=== PATIENT | female | born 1960 | race African-American/Black ===

== ENCOUNTER 2021-08-06 10:37 | Emergency (ER) | payer OTHER ==
[~2021-08-06] VITALS: Ht 157.5 cm; Wt 63.5 kg
--- NOTE | 2021-08-06 10:37 | NUR ---
BIBSELF C/O LEFT UPPER BACK PAIN X3DAYS, DENIES TRAUMA, CONCERN OF PNEUMONIA. DENIES COUGH/SOB. VITALS ARE WITHIN NORMAL LIMITS. BREATHING IS EVEN AND UNLABORED. PROVIDED BLANKET FOR COMFORT MEASURES.
--- NOTE | 2021-08-06 11:06 | NUR ---
Note rodneydylon in EDM - 08/06/21 at 1107 by ZORAIDARAJORDONO BIBSELF C/O LEFT UPPER BACK PAIN X3DAYS, DENIES TRAUMA, CONCERN OF PNEUMONIA. DENIES COUGH/SOB. VITALS ARE WITHIN NORMAL LIMITS. BREATHING IS EVEN AND UNLABORED. PROVIDED BLANKET FOR COMFORT MEASURES.
[2021-08-06 11:11] VITALS: BP 122/80
--- NOTE | 2021-08-06 11:28 | NUR ---
RN NOTES CX- RAY DONE.
[2021-08-06] MEDS ORDERED: IBUP-1955 PO (11:36)
== END 2021-08-06 11:43 | disposition home or self-care (01) ==
LOC: ER 10:42
DX: M25.511 Pain in right shoulder (principal); I10 Essential (primary) hypertension
CPT/HCPCS: 71045-TC

== ENCOUNTER 2021-08-15 16:03 | Emergency (ER) | payer OTHER ==
[~2021-08-15] VITALS: Ht 157.5 cm; Wt 63.5 kg
[~2021-08-15 16:03] MED LIST: IBUP-1955 PO
--- NOTE | 2021-08-15 16:25 | NUR ---
Note rodneyone in EDM - 08/15/21 at 1730 by KADEN RORY Anand FROM [employer] C/O DIZZINESS, WAS ABLE TO SIT DOWN -LOC -TRAUMA. WAS HER LAST WEEK FOR BACK PAIN. PT VITALS ARE WITHIN NORMAL LIMITS. BREATHING IS EVEN AND UNLABORED.
--- NOTE | 2021-08-15 16:25 | NUR ---
BIBS C/O COUGH, CHEST PAIN, BACK PAIN, WEAKNESS SINCE 08/06, WAS HERE LAST WEEK FOR BACK PAIN. VITALS ARE WITHIN NORMAL LIMITS. BREATHING IS REGULAR AND UNLABORED.
[2021-08-15] MEDS ORDERED: IV NS 0.9% 1,000 ML BAG IV ONE (17:00)
[2021-08-15 17:21] LABS: BASOPHILS % (AUTO) 1.3 % (0.0-2.0); EOSINOPHILS % (AUTO) 2.8 % (0.0-6.0); HEMATOCRIT 40 % (33-45); HEMOGLOBIN 12.9 g/dL (11.5-14.8); LYMPHOCYTES # (AUTO) 1.7 K/uL (0.8-4.8); LYMPHOCYTES % (AUTO) 50.2 % (20.0-44.0); MEAN CORPUSCULAR HGB CONC 33 g/dl (31.0-36.0); MEAN CORPUSCULAR VOLUME 87 fL (82-100); MONOCYTES # (AUTO) 0.3 K/uL (0.1-1.30); NEUTROPHILS # (AUTO) 1.2 K/uL (1.8-8.9); NEUTROPHILS % (AUTO) 36.7 % (43.0-81.0); PLATELET COUNT (AUTO) 265 K/uL (150-450); RED BLOOD CELL COUNT(AUTO) 4.58 MIL/uL (4.0-5.2); WHITE BLOOD COUNT (AUTO) 3.3 K/uL (4.3-11.0)
[2021-08-15 17:47] LABS: ALANINE AMINOTRANSFERASE 19 U/L (12-78); ALBUMIN 3.5 g/dL (3.4-5.0); ALKALINE PHOSPHATASE 88 U/L (46-116); ASPARTATE AMINOTRANSFERASE 17 U/L (15-37); BILIRUBIN,DIRECT 0.1 mg/dL (0.0-0.2); BILIRUBIN,TOTAL 0.4 mg/dL (0.2-1.0); CALCIUM, SERUM 8.3 mg/dL (8.5-10.1); CARBON DIOXIDE 30 mmol/L (21-32); CHLORIDE 103 mmol/L (98-107); GLUCOSE 95 mg/dL (74-106); LIPASE 73 U/L (73-393); POTASSIUM 3.2 mmol/L (3.5-5.1); SODIUM SERUM 141 mmol/L (136-145); TOTAL PROTEIN, SERUM 7.9 g/dL (6.4-8.2); UREA NITROGEN, BLOOD 12 mg/dL (7-18)
[2021-08-15] MEDS ORDERED: POTASSIUM CHLORIDE 20 MEQ TAB.PRT.SR PO ONE ×2 (18:00→18:02)
[2021-08-15] MEDS ORDERED: AZIT250T PO (18:42)
--- NOTE | 2021-08-15 18:56 | NUR ---
COVID TEST COLLECTED AND SENT
[2021-08-15 19:24] VITALS: BP 111/81
--- NOTE | 2021-08-15 19:24 | NUR ---
IV removed. Catheter intact and site benign. Pressure and 4x4 applied to site. No bleeding noted.Patient discharged to home in stable condition. Written and verbal after care instructions given. Patient verbalizes understanding of instruction.
== END 2021-08-15 19:25 | disposition home or self-care (01) ==
LOC: ER 16:23
DX: J20.9 Acute bronchitis, unspecified (principal); Z20.822 Contact with and (suspected) exposure to COVID-19; R94.31 Abnormal electrocardiogram [ECG] [EKG]; D72.819 Decreased white blood cell count, unspecified; E87.6 Hypokalemia; I10 Essential (primary) hypertension
CPT/HCPCS: 36415; 71045; 80048; 80076; 83690; 83735; 84484; 85025; 87426; 93005; 99285; C9803; J7030

== ENCOUNTER 2022-01-28 19:47 | Emergency (ER) | payer OTHER ==
[~2022-01-28] VITALS: Ht 157.5 cm; Wt 61.2 kg
[~2022-01-28 19:47] MED LIST changes: +AZIT250T PO
--- NOTE | 2022-01-28 19:55 | NUR ---
BIBS FOR C/O MID STERNAL CP X 4 DAYS S/P DRANK ALCOHOL. PATIENT ALERT AND ORIENTED X4. AMBULATORY WITH NON LABORED BREATHING IN BED 13 WAITING MD HANNA. PATIENT ON MONITOR AND POX.
--- NOTE | 2022-01-28 20:27 | NUR ---
OPHTHALMIC NURSE AT BEDSIDE
--- NOTE | 2022-01-28 20:47 | NUR ---
URINE COLLECTED AND SENT TO LAB
[2022-01-28 21:38] VITALS: BP 129/90
--- NOTE | 2022-01-28 21:38 | NUR ---
Patient discharged to home in stable condition. Written and verbal after care instructions given. Patient verbalizes understanding of instruction.
== END 2022-01-28 21:38 | disposition home or self-care (01) ==
LOC: ER 19:51
DX: T40.711A Poisoning by cannabis, accidental (unintentional), initial encounter (principal); R07.89 Other chest pain; I10 Essential (primary) hypertension; Z79.899 Other long term (current) drug therapy; Y92.89 Other specified places as the place of occurrence of the external cause

== ENCOUNTER 2022-02-15 16:29 | Emergency (ER) | payer OTHER ==
[~2022-02-15] VITALS: Ht 157.5 cm; Wt 63.5 kg
[2022-02-15 16:36] VITALS: BP 167/81
[2022-02-15] MEDS ORDERED: IV NS 0.9% 1,000 ML BAG IV ONE (17:00)
[2022-02-15 17:16] LABS: BASOPHILS % (AUTO) 0.8 % (0.0-2.0); EOSINOPHILS % (AUTO) 2.1 % (0.0-6.0); HEMATOCRIT 39 % (33-45); HEMOGLOBIN 12.9 g/dL (11.5-14.8); LYMPHOCYTES # (AUTO) 2.3 K/uL (0.8-4.8); MEAN CORPUSCULAR HGB CONC 33 g/dl (31.0-36.0); MEAN CORPUSCULAR VOLUME 85 fL (82-100); MONOCYTES # (AUTO) 0.3 K/uL (0.1-1.30); MONOCYTES % (AUTO) 7.8 % (2.0-12.0); NEUTROPHILS # (AUTO) 1.4 K/uL (1.8-8.9); NEUTROPHILS % (AUTO) 34.3 % (43.0-81.0); PLATELET COUNT (AUTO) 294 K/uL (150-450); RED BLOOD CELL COUNT(AUTO) 4.63 MIL/uL (4.0-5.2); WHITE BLOOD COUNT (AUTO) 4.2 K/uL (4.3-11.0)
[2022-02-15 17:31] LABS: CALCIUM, SERUM 9.2 mg/dL (8.5-10.1); CARBON DIOXIDE 34 mmol/L (21-32); CHLORIDE 104 mmol/L (98-107); GLUCOSE 102 mg/dL (74-106); POTASSIUM 3.8 mmol/L (3.5-5.1); SODIUM SERUM 144 mmol/L (136-145); UREA NITROGEN, BLOOD 13 mg/dL (7-18)
[2022-02-15 17:44] LABS: ALANINE AMINOTRANSFERASE 11 U/L (12-78); ALBUMIN 3.7 g/dL (3.4-5.0); ALKALINE PHOSPHATASE 97 U/L (46-116); ASPARTATE AMINOTRANSFERASE 12 U/L (15-37); BILIRUBIN,DIRECT 0.1 mg/dL (0.0-0.2); BILIRUBIN,TOTAL 0.4 mg/dL (0.2-1.0); TOTAL PROTEIN, SERUM 8.3 g/dL (6.4-8.2)
[2022-02-15 18:51] LABS: EOSINOPHILS % (MANUAL) 1 % (0-4); LYMPHOCYTES % (MANUAL) 47 % (16-48); MONOCYTES % (MANUAL) 5 % (0-11.0); NEUTROPHILS % (MANUAL) 47 (42-76)
[2022-02-15] MEDS ORDERED: DOCU-141 PO (19:05)
== END 2022-02-15 19:12 | disposition home or self-care (01) ==
LOC: ER 16:31
DX: K59.00 Constipation, unspecified (principal); I10 Essential (primary) hypertension
CPT/HCPCS: 36415; 71045; 74176; 80048; 80076; 84484; 85007; 85025; 93005 ×2; 96360; 99285; J7030

== ENCOUNTER 2022-12-03 18:04 | Emergency (ER) | payer OTHER ==
[~2022-12-03] VITALS: Ht 157.5 cm; Wt 61.2 kg
[~2022-12-03 18:04] MED LIST changes: +DOCU-141 PO
[2022-12-03 18:27] VITALS: BP 134/88
[2022-12-03] MEDS ORDERED: IV NS 0.9% 1,000 ML BAG IV ONE (21:30)
[2022-12-03] MEDS ORDERED: KETOROLAC TROMETHAMINE INJ 30 MG/ML VIAL IV ONE (21:30)
[2022-12-03] MEDS ORDERED: PIPERACILLIN /TAZOBACTAM 3.375 G in IV D5W 50 ML IV ONE (21:30)
[2022-12-03] MEDS ORDERED: MORPHINE SULFATE INJ 2 MG/ML DISP.SYRIN IV ONE (21:30)
[2022-12-03] MEDS ORDERED: ONDANSETRON HCL/PF 4 MG/2 ML VIAL IVP ONE (21:30)
[2022-12-03] MEDS ORDERED: PIPERACILLIN /TAZOBACTAM 3.375 G VIAL IV ONE (21:58)
[2022-12-03] MEDS ORDERED: ONDANSETRON HCL/PF 4 MG/2 ML VIAL ONE (21:58)
[2022-12-03] MEDS ORDERED: KETOROLAC TROMETHAMINE INJ 30 MG/ML VIAL ONE (21:58)
[2022-12-03] MEDS ORDERED: MORPHINE SULFATE INJ 4 MG/ML DISP.SYRIN ONE (21:58)
[2022-12-03 22:07] LABS: BASOPHILS # (AUTO) 0.1 K/uL (0.0-0.2); BASOPHILS % (AUTO) 0.7 % (0.0-2.0); EOSINOPHILS % (AUTO) 1.2 % (0.0-6.0); HEMATOCRIT 37 % (33-45); HEMOGLOBIN 12.4 g/dL (11.5-14.8); LYMPHOCYTES # (AUTO) 2.5 K/uL (0.8-4.8); LYMPHOCYTES % (AUTO) 31.5 % (20.0-44.0); MEAN CORPUSCULAR HGB CONC 33 g/dl (31.0-36.0); MEAN CORPUSCULAR VOLUME 84 fL (82-100); MONOCYTES # (AUTO) 0.5 K/uL (0.1-1.30); MONOCYTES % (AUTO) 6.2 % (2.0-12.0); NEUTROPHILS # (AUTO) 4.8 K/uL (1.8-8.9); NEUTROPHILS % (AUTO) 60.4 % (43.0-81.0); PLATELET COUNT (AUTO) 339 K/uL (150-450); RED BLOOD CELL COUNT(AUTO) 4.44 MIL/uL (4.0-5.2); WHITE BLOOD COUNT (AUTO) 7.9 K/uL (4.3-11.0)
[2022-12-03 22:19] LABS: CALCIUM, SERUM 9.4 mg/dL (8.5-10.1); CREATININE 0.9 mg/dL (0.6-1.3); POTASSIUM 2.9 mmol/L (3.5-5.1)
--- NOTE | 2022-12-03 22:30 | NUR ---
PT IN BED 7 BREATHING IS EVEN AN UNLABORED A/O X4. C/O ORAL PAOIN FROM INFECTED ABSESS. 05/20 PAIN ACCORDING TO PT. CONNECTED TO BEDISDE MONITOR VITAL WNL AFEBRIL. BED LOCKED IN LOWEST POSTION
--- NOTE | 2022-12-03 22:31 | NUR ---
20G RFA BLOOD DRAWN AND SENT TO LAB.
--- NOTE | 2022-12-03 22:31 | NUR ---
PT TAKEN TO CT VIA [facility]
[2022-12-03] MEDS ORDERED: IOHEXOL-300 100 ML VIAL IV ONE (22:35)
[2022-12-03] MEDS ORDERED: IV NS 0.9% 250 ML IV ONE (22:35)
[2022-12-03] MEDS ORDERED: CT SWABBABLE VALVE TRANS SET 1 EA INFUS.SET MC ONE (22:35)
[2022-12-03] MEDS ORDERED: IBUP-1953 PO (22:52)
[2022-12-03] MEDS ORDERED: HYDR-3972 PO (22:52)
[2022-12-03] MEDS ORDERED: CLIN300C12 PO (22:52)
[2022-12-03] MEDS ORDERED: POTASSIUM CHLORIDE 20 MEQ TAB.PRT.SR PO ONE ×2 (23:00→23:15)
[2022-12-03] MEDS ORDERED: POTA-58 PO (23:13)
== END 2022-12-03 23:13 | disposition home or self-care (01) ==
LOC: ER 18:05
DX: K04.7 Periapical abscess without sinus (principal); I10 Essential (primary) hypertension; R51.9 Headache, unspecified; Z79.899 Other long term (current) drug therapy
CPT/HCPCS: 99285; 96365; 70487; 96375; 85025; 80048; 36415; J2270; J1885; J2405; J2543 ×2; J7060; J7030; J7050; Q9967